=== PATIENT | male | born 1980 | race Hispanic/Latino ===

== ENCOUNTER 2023-04-07 18:07 | Emergency (ER) | payer OTHER ==
[2023-04-07] MEDS ORDERED: Ibuprofen 800 MG TAB ONE (20:39)
== END 2023-04-07 20:57 ==
LOC: ERS 18:07
DX: S05.12XA Contusion of eyeball and orbital tissues, left eye, initial encounter (principal); S09.90XA Unspecified injury of head, initial encounter; H11.32 Conjunctival hemorrhage, left eye; I10 Essential (primary) hypertension; Z79.899 Other long term (current) drug therapy; Y04.8XXA Assault by other bodily force, initial encounter
CPT/HCPCS: 70450; 70486; 93005